=== PATIENT | male | born 1985 | race Caucasian/White ===

== ENCOUNTER 2016-12-05 17:32 | Observation (INO) | payer BC ==
--- NOTE | ~2016-12-05 | HP ---
History And Physical [address] [place]. [address] NAME: MIGUEL DAVIS : [birth year] STATUS : ADM IN [facility]#: [id number] AGE: 31 ADM/REG DATE : 12/05/16 MR#: [id number] REPORT SERV DATE: 12/05/16 DICTATED BY: ELIDA OSUNA III DATE: 12/05/16 REPORT STATUS : Draft TRANSCRIBED BY: MODMaile DATE: 12/05/16 DATE OF ADMISSION: 12/05/2016 HISTORY OF PRESENT ILLNESS: This 31-year-old male is admitted to the hospital emergently with evidence for acute abdominal pain. The patient complains of severe lower abdominal pain. The pain is bilateral in nature. The patient describes the pain as 10/10. The pain was so bad that the patient fell to the floor and was in the position when his came home. The patient has had similar episodes of pain over the last several weeks, but these have resolved spontaneously. Associated with this pain, the patient has had aisha hematuria. The patient describes intermittent episodes of aisha blood in his urine. He went to an outpatient center where urinalysis was performed which showed aisha blood. Scrotal ultrasound was performed which was normal. When the pain occurs, it is bilateral. He describes this as 10/10. He states that the pain radiates down to his scrotum and testicles. PAST MEDICAL HISTORY: History of B-cell lymphoma, status post chemotherapy, with no evidence for recurrent disease. MEDICATIONS: None regularly. ALLERGIES: IVP DYE. SOCIAL: The patient is and works and lives locally. OBJECTIVE: GENERAL: This is a male in no acute distress. He is uncomfortable. He is alert and oriented x3. HEENT: Unremarkable. Neck unremarkable. No adenopathy. NEUROLOGIC: Cranial nerves II through XII are normal LUNGS: Clear. CARDIAC: Normal. ABDOMEN: Soft with tenderness in the suprapubic area with no guarding. EXTREMITIES: Normal. ASSESSMENT: A 31-year-old male with severe acute abdominal pain, associated with aisha hematuria, unclear etiology. The pain has become unmanageable as an outpatient and it was felt that emergent admission to hospital was indicated. PLAN: The patient has been admitted to hospital and started on parenteral fluids and analgesics as necessary. I have requested a stat CT scan of the abdomen and pelvis and Urology consult. This plan has been explained to the patient and his family. Their questions have been answered. They understand and agree to this as planned. ZACHARY/ANGELA History And Physical [address] [place]. [address] NAME: MIGUEL DAVIS : [birth year] STATUS : ADM IN PAT#: [id number] AGE: 31 ADM/REG DATE : 12/05/16 MR#: [id number] REPORT SERV DATE: 12/05/16 DICTATED BY: ELIDA OSUNA III DATE: 12/05/16 REPORT STATUS : Draft TRANSCRIBED BY: ANGELA DATE: 12/05/16 Elida Osuna III, M.D. / [id number] CC: Compa Arana III, M.D.
--- NOTE | ~2016-12-05 | CN ---
Consultation Report [id number] [facility] [place]. [address] NAME: MIGUEL SHI : [birth year] STATUS : ADM IN PAT#: [id number] AGE: 31 ADM/REG DATE : 12/05/16 MR#: [id number] REPORT SERV DATE: 12/06/16 DICTATED BY: GLENN STEVENS III DATE: 12/06/16 REPORT STATUS : Draft TRANSCRIBED BY: MODL DATE: 12/06/16 DATE OF CONSULTATION: 12/06/2016 REQUESTING PHYSICIAN: Miko Osuna M.D. REASON: Right ureteral calculus. He is in room 532. HISTORY OF PRESENT ILLNESS: Mr. Shi is a 31-year-old, white male, who has had gross hematuria off and on for several weeks. He then began having severe lower abdominal pain and right testicular pain. The scrotal ultrasound was normal. He was admitted by Dr. Osuna for further evaluation. CT scan shows a 3 mm distal ureteral calculus with hydronephrosis as above. Right now, his pain is controlled. PAST MEDICAL HISTORY: History of lymphoma. PAST SURGICAL HISTORY: Left elbow fracture surgery, left thoracotomy with a chest tube and Port-A-Cath placement. PHYSICAL EXAMINATION: The patient is afebrile with normal vital signs. He appears comfortable. LABORATORY WORK: Reve[place] [id number]. Electrolytes within normal limits. His urine is positive for blood. A CT scan shows a 3 mm distal right ureteral calculus with obstruction. ASSESSMENT: 1. Right ureteral calculus. 2. Renal colic secondary to #1. PLAN: We will have the patient try to pass the stone. Outpatient prescriptions were written for Percocet, Zofran, and tamsulosin. He is to follow up with me in one week with an x-ray. PH/MODL Glenn Stevens III, M.D. / [id number] CC: Cmopa Arana III, M.D.
[~2016-12-05 17:32] MED LIST: NEUR300 PO; P20 PO; PEPTO-BISMOL TA1 TAB PO; PRILOSEC40 MG PO; SINGULAIR1 PO; TUMSROLL PO; Z300 PO; [UNRECOGNIZED DRUG - REMARK]
[2016-12-05] MEDS ORDERED: *DENIES (18:15)
[2016-12-05 18:36] LABS: WBC (NOT ORDERED) (RFLEX) 0 (0-5)
[2016-12-05 18:56] LABS: BASOPHILS 0.1 %; BASOPHILS ABSOLUTE 0.01 10/3/uL (0.0-0.16); EOSINOPHILS 0.2 %; EOSINOPHILS ABSOLUTE 0.02 10/3/uL (0.0-0.53); HEMATOCRIT 44.7 % (40.0-51.0); HEMOGLOBIN 15.5 g/dL (13.6-17.8); IMMATURE GRANULOCYTES 0.2 %; IMMATURE GRANULOCYTES ABSOLUTE 0.02 10/3/uL (0.0-0.11); LYMPHOCYTES 8.5 %; LYMPHOCYTES ABSOLUTE 0.97 10/3/uL (0.67-4.30); MEAN CORPUS HGB CONC 34.7 g/dL (32.0-36.0); MEAN CORPUSCULAR HEMOGLOB 30.1 pg (26.0-34.0); MEAN CORPUSCULAR VOLUME 86.8 fL (80-100); MEAN PLATELET VOLUME 10.2 fL (9.2-13.0); MONOCYTES ABSOLUTE 0.46 10/3/uL (0.21-1.20); NEUTROPHILS ABSOLUTE 9.92 10/3/uL (2.02-8.40); PLATELET COUNT 202 10/3/uL (150-400); RBC DISTRIBUTION WIDTH 12.6 % (12.0-16.0); RED CELL COUNT 5.15 10/6/uL (4.7-6.1)
[2016-12-05 18:58] LABS: MANUAL DIFF NO %; WHITE BLOOD CELLS 11.4 10/3/uL (4.5-10.5)
[2016-12-05 19:12] LABS: A/G RATIO 1.3 (0.7-1.9); ALBUMIN 4.2 G/DL (3.5-5.0); BUN (BLOOD UREA NITROGEN) 15 MG/DL (6-23); CALCIUM, SERUM 9.1 MG/DL (8.5-10.4); CHLORIDE, SERUM 106 MMOL/L (96-112); CO2 (CARBON DIOXIDE) 26 MMOL/L (24-34); CREATININE 0.98 MG/DL (0.70-1.30); GFR AFRICAN AMERICAN 118 ML/MIN (>=60); GFR NON AFRICAN AMERICAN 102 ML/MIN (>=60); GLOBULIN 3.3 G/DL (2.5-4.1); GLUCOSE, SERUM 99 MG/DL (60-99); POTASSIUM, SERUM 3.8 MMOL/L (3.5-5.3); SGOT(AST) 28 U/L (5-40); SGPT(ALT) 58 U/L (5-65); SODIUM, SERUM 141 MMOL/L (135-148); TOTAL PROTEIN 7.5 G/DL (6.0-8.5)
[2016-12-05 19:13] LABS: ALKALINE PHOSPHATASE 65 U/L (45-117); TOTAL BILIRUBIN 1.1 MG/DL (0-1.2)
[2016-12-05 19:15] LABS: ASCORBIC ACID (UR NOT ORDER) NEG (NEG); BILIRUBIN, URINE NEGATIVE (NEG); KETONE, URINE 20 MG/DL (NEG); LEUKOCYTE ESTERASE(NOT OR NEG (NEG)
[2016-12-06] MEDS ORDERED: PERCOCET1 TA2 PO (12:21)
[2016-12-06] MEDS ORDERED: ZOFRAN4 PO (12:21)
[2016-12-06] MEDS ORDERED: FLOMAX4 PO (12:22)
[2016-12-11] MEDS ORDERED: ULTRAM50 PO (13:41)
[2016-12-11] MEDS ORDERED: LEVSINTAB PO (13:42)
== END 2016-12-06 12:48 | disposition home or self-care (01) ==
LOC: 5SO 17:32
PROVIDERS: Surgery
DX: N20.1 Calculus of ureter (principal); N23 Unspecified renal colic; Z92.21 Personal history of antineoplastic chemotherapy; Z91.041 Radiographic dye allergy status; Z98.890 Other specified postprocedural states
CPT/HCPCS: 74176; 80053; 81001; 85025; G0378